=== PATIENT | female | born 1990 | race Caucasian/White ===

== ENCOUNTER 2019-02-15 07:17 | Inpatient (IN) ==
[2019-02-15] MEDS ORDERED: OXYTOCIN 30 UNITS/500 ML BAG IV PRN ×2 (07:36→13:35)
[2019-02-15] MEDS ORDERED: LACTATED RINGER'S 1,000 ML IV PRN ×2 (07:36→09:35)
[2019-02-15] MEDS ORDERED: PENICILLIN G POTASSIUM 3 MU in DEXTROSE 5% 100 ML IV PRN (07:36)
[2019-02-15] MEDS ORDERED: PENICILLIN G POTASSIUM 6 MU in DEXTROSE 5% 250 ML IV STA (07:36)
[2019-02-15 08:16] LABS: Hematocrit (blood only) 36.6 % (37-47); Hemoglobin 12.8 g/dL (12.0-16.0); Mean Corpuscular Volume 93.1 fL (80-100); Mean Platelet Volume 11.9 fL (7.4-10.4); Platelet Count 204 K/uL (130-400); RDW Coefficient of Variation 12.4 % (11.5-14.5); RDW Standard Deviation 42.3 fL (36.4-46.3); Red Blood Count 3.93 M/uL (4.2-5.4); White Blood Count 9.85 K/uL (4.8-10.8)
[2019-02-15] MEDS: LACTATED RINGER'S 1,000 ML IV SCH ×2 (08:25→09:37)
[2019-02-15] MEDS ORDERED: fentaNYL citrate 100 MCG/2 ML VIAL ONE (08:40)
[2019-02-15] MEDS ORDERED: BUPIVACAINE 0.25% 30 ML VIAL ONE (08:40)
[2019-02-15] MEDS ORDERED: ePHEDrine sulfate 50 MG/ML AMP ONE (08:40)
[2019-02-15] MEDS ORDERED: fentaNYL 2MCG/ML ROPIV 1.25MG/ML 100 ML BAG EPI ONE (08:41)
--- NOTE | 2019-02-15 09:13 | Anesthesiology Consultation ---
Date of Service February 15, 2019 Assessment & Plan Chart Review Chart Review: Patient NOT seen in Pre Admission Testing and Acceptable Risk for Labor Epidural Consults Requested none ASA ASA2 Proposed Anesthesia Anesthesia Type: Labor Epidural Risk / Benefits Reviewed With: PT / POA / Parent / Guardian, Accepts Plan and Informed Consent Obtained NPO Date Last Intake of Fluids: 02/15/19 Time Last Intake of Fluids: 05:15 Date Last Intake of Solids: 02/15/19 Time Last Intake of Solids: 05:15 History Height/Weight Height: 5 ft 6 in Weight: 79.832 kg Allergies Allergy/AdvReac Type Severity Reaction Status Date / Time No Known Allergies Allergy Verified 02/15/19 08:59 Medications Home Medications Medication Instructions Recorded Confirmed Last Taken PNV cmb#95-ferrous fumarate-FA 1 tab PO DAILY 02/15/19 02/15/19 02/14/19 08:00 [] lurasidone [Latuda] 20 mg PO DAILY 02/15/19 02/15/19 02/15/19 08:00 Active Medications Generic Name Dose Route Start Last Admin Trade Name Freq PRN Reason Stop Dose Admin Lactated Ringer's 1,000 mls @ 125 mls/hr 02/15/19 07:45 02/15/19 08:28 Lr IV 02/17/19 07:44 999 mls/hr .Q8H SOHAM Infusion Past Medical History Medical History ADHD (attention deficit hyperactivity disorder) Anemia Bipolar 1 disorder GERD (gastroesophageal reflux disease) H/O wisdom tooth extraction HLD (hyperlipidemia) Hypoalbuminemia Hypothyroid Past Surgical History Surgical History H/O arthroscopic knee surgery Past Anesthesia History No Hx of Anesthesia Complications and No Family Hx of Anesthesia Complications History of PONV No Motion Sickness Screening History of Motion Sickness: No Social History Smoking Status: Former smoker Hx Alcohol Use: Yes (few days ago; patient states only 1 class ever in ) Alcohol type: wine Alcohol Intake Frequency Comment: per patient has only ever consumed one glass of wine while being Hx Substance Use: No substance use type: does not use Exercise / Class Metabolic Activity II 4-5 Yardwork/Stairs/Walk up hill Physical Exam Vital Signs Last Vital Signs Temp 37.1 C 02/15/19 09:03 Pulse 79 02/15/19 09:05 Resp 16 02/15/19 07:26 BP 133/86 02/15/19 07:27 Pulse Ox 100 02/15/19 09:05 ENMT Mouth: no dentition abnormality Thyromental Distance: > or= 3.5 Finger Breadths Mallampati Class: II Neck normal visual inspection and trachea midline; neck extension not limited Respiratory normal respiratory effort Auscultation: lungs clear to auscultation bilaterally Cardiovascular Rate/Rhythm: regular rate and regular rhythm Heart Sounds: no murmur Musculoskeletal Spine: lumbar spine normal to inspection; normal cervical ROM Neurologic moves all extremities Motor/Sensory: no sensory deficit Psychiatric Orientation: alert and oriented x 3 Testing Laboratory Results 02/15/19 07:43
[2019-02-15] MEDS ORDERED: NALOXONE HCL 1 MG in SODIUM CHLORIDE 0.9% 1000ML 1,000 ML IV PRN (09:35)
[2019-02-15] MEDS ORDERED: ONDANSETRON INJ 2 MG/ML 2 ML VIAL IV PRN (09:35)
[2019-02-15] MEDS ORDERED: DiphenhydrAMINE HCL 50 MG/ML VIAL IV PRN (09:35)
[2019-02-15] MEDS ORDERED: NALOXONE HCL 0.4 MG/1 ML VIAL/CARP IV PRN (09:35)
[2019-02-15] MEDS ORDERED: ePHEDrine sulfate 50 MG/ML AMP IV PRN (09:35)
[2019-02-15] MEDS ORDERED: NALBUPHINE HCL INJ 10 MG/ML AMP IV PRN (09:35)
[2019-02-15] MEDS ORDERED: fentaNYL 2MCG/ML ROPIV 1.25MG/ML 100 ML BAG EPI PRN (09:35)
[2019-02-15] MEDS ORDERED: PROMETHAZINE HCL 25 MG in SODIUM CHLORIDE 0.9% 50 ML IV PRN (09:35)
--- NOTE | 2019-02-15 12:14 | Procedure Note ---
Vaginal Delivery Summary Date of Service February 15, 2019 Vaginal Delivery Summary Predelivery diagnoses: 28yo @ 36 2/7, spontaneous labor, bipolar disorder, hypothyroidism Postdelivery diagnoses: same Surgeon: Dr Rodriguez Procedure: spontaneous vaginal delivery Findings: viable male , Apgars 8/9. Amniotic banding of left 3rd toe. Nuchal x 1 EBL: 300ml Complications: none Description of delivery: Patient presented in spontaneous labor with spontaneous rupture of membranes for clear fluid and regular contractions. She received an epidural, progressed to complete dilation, and began to push. She spontaneously vaginally delivered a viable male in the cephalic presentation. The head delivered in the left occiput anterior position, nuchal cord x1 was noted and easily reduced, the anterior shoulder delivered followed by the posterior shoulder followed by the body. Baby was placed on mother's abdomen, a spontaneous cry was heard. Delayed cord clamping was employed, and after 1 minute the cord was checked for pulsation, and doubly clamped and cut. The placenta was delivered spontaneously intact with a three-vessel cord. Pitocin was given, the uterus became firm. The uterus and vagina were swept of all clots and debris. The cervix, vagina, perineum were inspected and no lacerations were noted. Excellent hemostasis was observed. Mother and baby are recovering in stable and good condition in the room, Dr. Viera, financial solutions advisor, discussed findings with mother of missing toe due to amniotic banding. Sponge, instrument counts were correct at the conclusion of the delivery x2.
--- NOTE | 2019-02-15 12:17 | History & Physical Report ---
Date of Service February 15, 2019 Assessment & Plan (1) 36 weeks gestation of : Spontaneous labor, admit to L&D. History of Present Illness Chief Complaint: SROM Primary Care Provider: Belen Tammisteffi 28yo @ 36 12/19 was admitted this morning with SROM and spontaneous labor. + movement, no vaginal bleeding. complicated by maternal hypothyroidism, bipolar disorder. On echo, there was a mildly dilated right ventricle, otherwise normal requiring no additional followup. Allergies Allergy/AdvReac Type Severity Reaction Status Date / Time nickel AdvReac Redness of Verified 02/15/19 09:56 Skin Home Medications Home Medications Medication Instructions Recorded Confirmed Type PNV cmb#95-ferrous fumarate-FA 1 tab PO DAILY 02/15/19 02/15/19 History [] lurasidone [Latuda] 20 mg PO DAILY 02/15/19 02/15/19 History Patient History Surgical History H/O arthroscopic knee surgery Social History Preferred Language: Luxembourgish Beliefs That Will Affect Care: None marital status: Single Current Living Situation: Parent Other Information That Helps Us Care for You: No Feels Safe at Home: Yes Safety Concerns: Feels Safe At This Time Smoking Status: Former smoker Hx Alcohol Use: Yes (few days ago; patient states only 1 class ever in ) Hx Substance Use: No Physical Exam Vital Signs (Past 24 Hours): Last Vital Signs Temp 36.6 C 02/15/19 10:58 Pulse 108 H 02/15/19 11:57 Resp 18 02/15/19 10:30 BP 149/81 H 02/15/19 11:57 Pulse Ox 99 02/15/19 11:50 Physical Exam: Gen: AAOx3 NAD CV: RRR L: CTAB Abd: Soft, gravid, NTTP Ext: no edema SVE: on presentation, 4/100/-1 FHT Cat 1 [place] Q 2 min
[2019-02-15] MEDS ORDERED: OXYCODONE/ACETAMINOPHEN 5mg/325mg TAB PO PRN (13:35)
[2019-02-15] MEDS ORDERED: BISACODYL 10 MG SUPP PR PRN (13:35)
[2019-02-15] MEDS ORDERED: SUPERCREAM 0.870% 15 GM JAR EXT PRN (13:35)
[2019-02-15] MEDS ORDERED: BENZOCAINE 20% AER SPR 82.5 GM CAN EXT PRN (13:35)
[2019-02-15] MEDS ORDERED: DIPHTHERIA/TETANUS/PERTUSSIS 0.5 ML SYR/VIAL IM ONE (13:35)
[2019-02-15] MEDS ORDERED: HYDROCORTISONE ACETATE 25 MG SUPP PR PRN (13:35)
[2019-02-15] MEDS ORDERED: ACETAMINOPHEN 325 MG TAB PO PRN (13:35)
--- NOTE | 2019-02-15 13:46 | Anesthesia Procedure Note ---
Date of Service February 15, 2019 Anesthesia Post Epidural Note Vital Signs Vital Signs: Temp Pulse Resp BP Pulse Ox 36.6 C 80 18 125/74 99 02/15/19 10:58 02/15/19 13:41 02/15/19 10:30 02/15/19 13:41 02/15/19 11:50 Notes Mental Status: alert / awake / arousable Nausea / Vomiting: adequately controlled Pain: adequately controlled Airway Patency, RR, SpO2: stable & adequate BP & HR: stable & adequate Hydration State: stable & adequate Neuraxial Anesthesia: was administered Anesthetic Complications: no major complications apparent Epidural: Removed without complications and With tip intact
[2019-02-15] MEDS ORDERED: Nursing to Pharmacy Communication ONE (20:37)
[2019-02-15] MEDS: DOCUSATE SODIUM 100 MG CAP PO SCH (21:10)
[2019-02-15] MEDS: LURASIDONE HCL 40 MG TAB PO SCH (21:11)
[2019-02-15] MEDS: IBUPROFEN 600 MG TAB PO PRN (21:16)
[2019-02-16] MEDS: LEVOTHYROXINE SODIUM 112 MCG TABLET PO SCH (06:54)
[2019-02-16 07:01] LABS: Hematocrit (blood only) 36.9 % (37-47); Hemoglobin 12.8 g/dL (12.0-16.0)
[2019-02-16] MEDS: PRENATAL VITAMIN 1 TAB PO SCH (08:00)
[2019-02-16] MEDS: DOCUSATE SODIUM 100 MG CAP PO SCH ×2 (08:00→21:18)
--- NOTE | 2019-02-16 08:02 | Obstetrical Progress Note ---
Date of Service February 16, 2019 Assessment & Plan (1) 36 weeks gestation of : PPD#1 doing well, no concerns. Continue ambulation, PO hydration. Anticipate DC home tomorrow. Day #:: 1 Subjective Ambulation: ambulating normally Voiding: no voiding problems Passing Gas:: Yes Diet Tolerance:: regular diet Lochia:: Moderate Feeding Type:: breast feeding Physical Exam Vital Signs (Past 24 Hours) Last Vital Signs Temp 36.7 C 02/16/19 07:36 Pulse 75 02/16/19 07:36 Resp 18 02/16/19 07:36 BP 131/89 02/16/19 07:36 Pulse Ox 97 02/15/19 19:20 Gen: AAOx3 NAD CV: RRR L: CTAB Abd: soft, NTTP Ext: no edema
[2019-02-16] MEDS: IBUPROFEN 600 MG TAB PO PRN ×2 (08:18→17:40)
[2019-02-16] MEDS ORDERED: NON-FORMULARY MEDICATION (Pnv Cmb#95-Ferrous Fumarate-Fa [Prenatal] 1 TAB) PO SCH (09:00)
[2019-02-16] MEDS ORDERED: LURASIDONE HCL 40 MG TAB PO SCH (09:00)
[2019-02-16] MEDS ORDERED: BISACODYL 5 MG TABEC PO SCH (20:00)
[2019-02-16] MEDS: LURASIDONE HCL 40 MG TAB PO SCH (21:19)
[2019-02-17] MEDS: IBUPROFEN 600 MG TAB PO PRN ×2 (04:36→08:49)
[2019-02-17] MEDS: LEVOTHYROXINE SODIUM 112 MCG TABLET PO SCH (06:48)
--- NOTE | 2019-02-17 06:58 | Obstetrical Progress Note ---
Date of Service <Dio Buchanan DO - Last Filed: 02/17/19 06:58> February 17, 2019 Assessment & Plan <Dio Buchanan DO - Last Filed: 02/17/19 06:58> (1) 36 weeks gestation of : PPD#2 - discharge home today, continue with routine post- care until discharge home - discharge instructions reviewed at bedside Subjective <Dio Buchanan DO - Last Filed: 02/17/19 06:58> Ambulation: ambulating normally Voiding: no voiding problems Passing Gas:: Yes Diet Tolerance:: regular diet Lochia:: Small Feeding Type:: breast feeding Vicky states she is doing well and is ready for discharge home today. She denies fever, chills, chest pain, nausea, vomiting, headache. Physical Exam <Dio Buchanan DO - Last Filed: 02/17/19 06:58> Vital Signs (Past 24 Hours) Last Vital Signs Temp 36.3 C L 02/17/19 00:50 Pulse 65 02/17/19 00:50 Resp 16 02/17/19 00:50 BP 126/80 02/17/19 00:50 Pulse Ox 97 02/16/19 15:35 Constitutional WD/WN, vitals as above cooperative and comfortable Eyes + anicteric sclerae and EOM intact bilaterally Neck normal visual inspection and trachea midline Respiratory normal respiratory effort, lungs clear to auscultation Cardiovascular RRR, no murmur, no edema Gastrointestinal (Abdomen) Percussion/Palpation: abdomen nontender uterine fundus is firm, non-tender, 3cm inferior to umbilicus Musculoskeletal Head/Neck/Chest: normocephalic and head atraumatic Skin no rashes, warm and dry Neurologic moves all extremities and awake Psychiatric A+Ox3, euthymic affect Results & Data <Dio Buchanan DO - Last Filed: 02/17/19 06:58> Laboratory Results Laboratory Results - last 24 hr 02/16/19 06:48 Hgb 12.8 Hct 36.9 L Medications Administered Docusate Sodium (Colace) 100 mg PO BID SOHAM Stop: 03/17/19 20:59 Last Admin: 02/16/19 21:18 Dose: 100 mg Documented by: [id number] Admin: 02/16/19 08:00 Dose: 100 mg Documented by: [id number] Admin: 02/15/19 21:10 Dose: 100 mg Documented by: [id number] Ibuprofen (Motrin) 600 mg PO Q4H PRN PRN Reason: Pain/SOLARES/Cramping/Fever Stop: 03/17/19 13:34 Last Admin: 02/17/19 04:36 Dose: 600 mg Documented by: [id number] Admin: 02/16/19 17:40 Dose: 600 mg Documented by: [id number] Admin: 02/16/19 08:18 Dose: 600 mg Documented by: [id number] Admin: 02/15/19 21:16 Dose: 600 mg Documented by: [id number] Levothyroxine Sodium (Synthroid) 112 mcg PO DAILYBB [facility] Stop: 03/18/19 06:29 Last Admin: 02/17/19 06:48 Dose: 112 mcg Documented by: [id number] Admin: 02/16/19 06:54 Dose: 112 mcg Documented by: [id number] Lurasidone HCl (Latuda) 20 mg PO HS [facility] Stop: 03/17/19 20:59 Last Admin: 02/16/19 21:19 Dose: 20 mg Documented by: [id number] Admin: 02/15/19 21:11 Dose: 20 mg Documented by: [id number] Prenat Multivit/Consignee/Iron/Folic Ac ( Vitamin) 1 tab PO QAM [facility] Stop: 03/18/19 08:59 Last Admin: 02/16/19 08:00 Dose: 1 tab Documented by: [id number] <Celia Rodriguez, DO - Last Filed: 02/17/19 07:32> Co-Signing Physician Notes I have seen/examined patient. I have read above note performed by resident and I agree with above. Any changes/additions are as follows: PPD#2 doing well, DC home today. Celia Rodriguez DO [facility]
[2019-02-17] MEDS: DOCUSATE SODIUM 100 MG CAP PO SCH (08:49)
[2019-02-17] MEDS: PRENATAL VITAMIN 1 TAB PO SCH (08:49)
== END 2019-02-17 18:50 | disposition home or self-care (01) | DRG 807 ==
LOC: OPB 07:17 → 4S1 07:19 → 4S2 16:20

== ENCOUNTER 2020-05-18 18:43 | Inpatient (IN) ==
[~2020-05-18 18:43] MED LIST: MAGNESIUM SULFATE / D5W 1 GM/100 ML BAG IV ONE
[2020-05-18] MEDS ORDERED: LORazepam 1 MG TAB PO STA (19:03)
--- NOTE | 2020-05-18 19:09 | Emergency Department Note ---
Impression & Plan Acute pancreatitis, Alcoholic intoxication, Transaminitis, Alcohol withdrawal ED Provider Note NAME: MICHELLE COTA AGE: 29 SEX: F : 1990 ARRIVES VIA: Walk-In INFORMANT: Patient ED PROVIDER(S): Eladio Phoenix DO CHIEF COMPLAINT: Anxiety depression and shortness of breath HPI: Patient is a 29-year-old female who presents the ER for shortness of breat h, anxiety, nausea, and vomiting. Her symptoms have been going on for the past month. She does have a history of depression, anxiety and bipolar. Her medications were changed around about a month ago. She has been following with [facility] as an outpatient. She has not been able to get to work with the exception of 4 hours throughout this whole month. She constantly feels short of breath with tremors/whole body shaking and intermittent nausea and vomiting. She notes this was when her panic attacks got worse. She has been getting this every day. She is not taking care of herself. She denies any homicidal or suicidal ideations. She has also been having diarrhea daily as well. Patient later admits that she is an alcoholic. She drinks three quarters of a bottle of tequila per day. This is been going on for the past month. She recently has been decreasing amount of tequila that she is taking them. ROS: See above HPI for pertinent positives & negatives. A total of 10 systems reviewed and were otherwise negative. PAST MEDICAL HISTORY:See Below PAST SURGICAL HISTORY:See Below FAMILY HISTORY:Diabetes and cancer SOCIAL HISTORY:See Below HOME MEDICATIONS:See Below ALLERGIES:See Below VITALS:See Below PHYSICAL EXAMINATION: GENERAL: Sitting up in bed, disheveled, intermittently vomiting, tachypneic and anxious EYE EXAM: normal conjunctiva. OROPHARYNX: no exudate, no erythema, lips, buccal mucosa, and tongue normal and mucous membranes are moist NECK: supple, no nuchal rigidity, no adenopathy, non-tender LUNGS: Clear to auscultation. Normal chest wall mechanics HEART: no murmurs, S1 normal and S2 normal ABDOMEN: abdomen soft, non-tender, normo-active bowel sounds, no masses, no rebound or guarding. BACK: Back is symmetrical on inspection and there is no deformity, no midline tenderness, no CVA tenderness. SKIN: no rashes and no bruising UPPER EXTREMITIES: upper extremities are grossly normal. LOWER EXTREMITIES: No pitting edema. NEURO EXAM: Normal sensorium, cranial nerves II-XII grossly intact, normal speech, no gross weakness of arms, no gross weakness of legs. No drift. PSYCH: Denies and SI or HI unable to eat or drink. MEDICAL DECISION MAKING: Patient is a 29-year-old female who presents the ER for shortness of breath nausea vomiting and a panic attack all of which has been going on for the past month but recently getting worse. She has had a significant change in her medications. IV was status post orders obtained. Labs show no significant leukocytosis or anemia. BMP was unremarkable. D-dimer was slightly elevated at 1900. Magnesium was low at 1.5. AST was elevated at 375 and ALT is elevated at 127. Early Manny was not elevated. Baseline ALT is 88. Lipase was elevated at 800. TSH was elevated. Alcohol was significantly elevated at 170. With positive d-dimer CT of the chest was performed and was negative. Patient was given IV fluids IV Zofran and IV Ativan. Heart rate was up in the 130s. US gallbladder was unremarkable. She was updated at bedside and discussed with the hospitalist for admission for further workup. Patient was given IV thiamine folate and 2 L IV fluids. She will need to be evaluated by psychiatry as well from an inpatient standpoint. Do favor that this is likely with a combination alcohol pancreatitis with a transaminitis. Triage Nursing notes reviewed. Prior medical records reviewed Vital Signs: reviewed and remarkable for tachycardia Differential diagnosis: Mood disorder, infection, hypoglycemia, electrolyte abnormalities, cardiac sources, intracerebral event, toxicologic, trauma, neurologic, as well as other pathologies. ER treatment provided: See below Diagnostics interpreted by me: ECG: Sinus tachycardia rate of 116 Normal axis No PVCs Normal QTC Nonspecific T wave changes in the inferior leads Cardiac Monitoring: An order was placed for continuous cardiac monitoring. The monitor shows a rate of 112 with sinus rhythm. Laboratory studies: As stated above and show below. Imaging studies: Chest x-ray was unremarkable. CT of the chest shows no acute pathology. Ultrasound gallbladder was normal. Consultation(s): Discussed with Dr. Ramirez for admission. ED COURSE: Procedures: none Past Med/Surg History Social History Preferred Language: Spanish Communication Ability: Effective Beliefs That Will Affect Care: None marital status: Single Current Living Situation: Parent Feels Safe at Home: Yes Smoking Status: Never smoker Hx Alcohol Use: Yes (few days ago; patient states only 1 class ever in ) Alcohol type: wine Hx Substance Use: No Allergies Allergies Allergy/AdvReac Type Severity Reaction Status Date / Time nickel AdvReac Redness of Verified 05/18/20 19:24 Skin Home Meds Home Medications Medication Instructions Recorded Confirmed levothyroxine 100 mcg PO QAM 08/12/19 05/18/20 buspirone 7.5 mg PO BID 05/18/20 05/18/20 lisdexamfetamine [Vyvanse] 40 mg PO QAM 05/18/20 05/18/20 norethindrone-ethin estradiol 1 tab PO DAILY 05/18/20 05/18/20 [Alyacen (28)] omeprazole 20 mg PO QAM 05/18/20 05/18/20 quetiapine 25 mg PO HS 05/18/20 05/18/20 Results & Data (ED) Vital Signs Vital Signs - 24 hr 05/18/20 18:46 05/18/20 19:26 05/18/20 20:25 Temperature 36.6 C Temperature Source Oral Pulse Rate 138 H Pulse Rate [Right Finger] 128 H Pulse Rhythm Regular Pulse Strength Normal Respiratory Rate 20 20 Respiratory Effort / Characteristics Non-Labored Respiratory Depth Normal Respiratory Pattern Regular Blood Pressure [Right Arm] 157/113 H Blood Pressure Mean [Right Arm] 127 Blood Pressure Position Sitting Pulse Oximetry 96 97 100 Oxygen Delivery Method Room Air Room Air Sepsis Recent Fever Within 48 Hours No Sepsis Action Taken by Nursing No Action Required 05/18/20 20:43 Temperature Temperature Source Pulse Rate Pulse Rate [Right Finger] 122 H Pulse Rhythm Pulse Strength Respiratory Rate 15 Respiratory Effort / Characteristics Respiratory Depth Respiratory Pattern Blood Pressure [Right Arm] 159/116 H Blood Pressure Mean [Right Arm] 130 Blood Pressure Position Pulse Oximetry 97 Oxygen Delivery Method Sepsis Recent Fever Within 48 Hours Sepsis Action Taken by Nursing Laboratory Data Result diagrams: 05/18/20 19:22 05/18/20 19:22 Lab Results 05/18/20 05/18/20 05/18/20 Range/Units 19:22 19:22 19:22 WBC 6.07 (4.8-10.8) K/uL RBC 4.00 L (4.2-5.4) M/uL Hgb 13.7 (12.0-16.0) g/dL Hct 39.7 (37-47) % MCV 99.3 (80-100) fL MCH 34.3 H (25-34) pg MCHC 34.5 (32-36) g/dL RDW Std Deviation 51.4 H (36.4-46.3) fL RDW Coeff of Aiden 14.3 (11.5-14.5) % Plt Count 313 (130-400) K/uL MPV 9.8 (7.4-10.4) fL Immature Gran % (Auto) 0.2 % Neut % (Auto) 50.6 % Lymph % (Auto) 36.7 % [place] % (Auto) 9.4 % Eos % (Auto) 1.8 % Baso % (Auto) 1.3 % Neut # (Auto) 3.07 (1.4-6.5) K/uL Lymph # (Auto) 2.23 (1.2-3.4) K/uL [place] # (Auto) 0.57 (0.11-0.59) K/uL Eos # (Auto) 0.11 (0-0.5) K/uL Baso # (Auto) 0.08 (0-0.2) K/uL Immature Gran # (Auto) 0.01 (0.00-0.02) K/uL PT (9.0-12.0) Seconds INR (0.9-1.1) D-Dimer 1910 H* (0-500) ug/L FEU Sodium 139 (136-145) mmol/L Potassium 3.5 (3.5-5.1) mmol/L Chloride 103 (98-107) mmol/L Carbon Dioxide 22 (21-32) mmol/L Anion Gap 14.0 H (3-11) BUN 8 (7-18) mg/dl Creatinine 0.86 (0.6-1.2) mg/dl Est Cr Clr Drug Dosing 98.0 ml/min Est GFR ( Amer) 105.1 Est GFR (Non-Af Amer) 90.7 BUN/Creatinine Ratio 9.6 L (10-20) Glucose 104 H (70-99) mg/dl Calcium 8.3 L (8.5-10.1) mg/dl Magnesium (1.8-2.4) mg/dl Total Bilirubin 0.4 (0.2-1) mg/dl AST 375 H (15-37) U/L ALT 127 H (12-78) U/L Alkaline Phosphatase 57 (45-117) U/L Total Protein 7.4 (6.4-8.2) gm/dl Albumin 3.4 (3.4-5.0) gm/dl Globulin 4.0 (2.5-4.0) gm/dl Albumin/Globulin Ratio 0.9 (0.9-2) Lipase (73-393) U/L TSH 14.500 H (0.300-4.500) uIu/ml Free T4 1.08 (0.8-1.6) ng/dl Salicylates (2.8-20) mg/dl Acetaminophen (10-30) ug/ml Ethyl Alcohol mg/dL (0-3) mg/dl 05/18/20 05/18/20 05/18/20 Range/Units 19:22 19:22 19:22 WBC (4.8-10.8) K/uL RBC (4.2-5.4) M/uL Hgb (12.0-16.0) g/dL Hct (37-47) % MCV (80-100) fL MCH (25-34) pg MCHC (32-36) g/dL RDW Std Deviation (36.4-46.3) fL RDW Coeff of Aiden (11.5-14.5) % Plt Count (130-400) K/uL MPV (7.4-10.4) fL Immature Gran % (Auto) % Neut % (Auto) % Lymph % (Auto) % [place] % (Auto) % Eos % (Auto) % Baso % (Auto) % Neut # (Auto) (1.4-6.5) K/uL Lymph # (Auto) (1.2-3.4) K/uL [place] # (Auto) (0.11-0.59) K/uL Eos # (Auto) (0-0.5) K/uL Baso # (Auto) (0-0.2) K/uL Immature Gran # (Auto) (0.00-0.02) K/uL PT (9.0-12.0) Seconds INR (0.9-1.1) D-Dimer (0-500) ug/L FEU Sodium (136-145) mmol/L Potassium (3.5-5.1) mmol/L Chloride (98-107) mmol/L Carbon Dioxide (21-32) mmol/L Anion Gap (3-11) BUN (7-18) mg/dl Creatinine (0.6-1.2) mg/dl Est Cr Clr Drug Dosing ml/min Est GFR ( Amer) Est GFR (Non-Af Amer) BUN/Creatinine Ratio (10-20) Glucose (70-99) mg/dl Calcium (8.5-10.1) mg/dl Magnesium (1.8-2.4) mg/dl Total Bilirubin (0.2-1) mg/dl AST (15-37) U/L ALT (12-78) U/L Alkaline Phosphatase (45-117) U/L Total Protein (6.4-8.2) gm/dl Albumin (3.4-5.0) gm/dl Globulin (2.5-4.0) gm/dl Albumin/Globulin Ratio (0.9-2) Lipase 816 H (73-393) U/L TSH (0.300-4.500) uIu/ml Free T4 (0.8-1.6) ng/dl Salicylates 1.9 L (2.8-20) mg/dl Acetaminophen < 2 L (10-30) ug/ml Ethyl Alcohol mg/dL 169.8 H (0-3) mg/dl 05/18/20 05/18/20 Range/Units 19:22 19:22 WBC (4.8-10.8) K/uL RBC (4.2-5.4) M/uL Hgb (12.0-16.0) g/dL Hct (37-47) % MCV (80-100) fL MCH (25-34) pg MCHC (32-36) g/dL RDW Std Deviation (36.4-46.3) fL RDW Coeff of Aiden (11.5-14.5) % Plt Count (130-400) K/uL MPV (7.4-10.4) fL Immature Gran % (Auto) % Neut % (Auto) % Lymph % (Auto) % [place] % (Auto) % Eos % (Auto) % Baso % (Auto) % Neut # (Auto) (1.4-6.5) K/uL Lymph # (Auto) (1.2-3.4) K/uL [place] # (Auto) (0.11-0.59) K/uL Eos # (Auto) (0-0.5) K/uL Baso # (Auto) (0-0.2) K/uL Immature Gran # (Auto) (0.00-0.02) K/uL PT 10.3 (9.0-12.0) Seconds INR 1.0 (0.9-1.1) D-Dimer (0-500) ug/L FEU Sodium (136-145) mmol/L Potassium (3.5-5.1) mmol/L Chloride (98-107) mmol/L Carbon Dioxide (21-32) mmol/L Anion Gap (3-11) BUN (7-18) mg/dl Creatinine (0.6-1.2) mg/dl Est Cr Clr Drug Dosing ml/min Est GFR ( Amer) Est GFR (Non-Af Amer) BUN/Creatinine Ratio (10-20) Glucose (70-99) mg/dl Calcium (8.5-10.1) mg/dl Magnesium 1.5 L (1.8-2.4) mg/dl Total Bilirubin (0.2-1) mg/dl AST (15-37) U/L ALT (12-78) U/L Alkaline Phosphatase (45-117) U/L Total Protein (6.4-8.2) gm/dl Albumin (3.4-5.0) gm/dl Globulin (2.5-4.0) gm/dl Albumin/Globulin Ratio (0.9-2) Lipase (73-393) U/L TSH (0.300-4.500) uIu/ml Free T4 (0.8-1.6) ng/dl Salicylates (2.8-20) mg/dl Acetaminophen (10-30) ug/ml Ethyl Alcohol mg/dL (0-3) mg/dl Administered Medications Magnesium Sulfate/Dextrose (Magnesium Sulfate / D5w) 1 gm in 100 mls @ 50 mls/hr IV ONE ONE Stop: 05/18/20 23:12 Last Admin: 05/18/20 21:39 Dose: 50 mls/hr Documented by: [id number] Ioversol (Optiray 320 125ml) 115 ml IV ONCE PRN PRN Reason: Interaction Checking Stop: 05/22/20 20:17 Last Admin: 05/18/20 20:18 Dose: 115 ml Documented by: [id number] Discontinued Medications Clonidine HCl (Catapres) 0.1 mg PO NOW STA Stop: 05/18/20 21:17 Last Admin: 05/18/20 21:39 Dose: 0.1 mg Documented by: [id number] Gabapentin (Neurontin) 1,200 mg PO NOW STA Stop: 05/18/20 21:09 Last Admin: 05/18/20 21:40 Dose: 1,200 mg Documented by: [id number] Sodium Chloride (Nss 1000ml) 2,000 mls @ 999 mls/hr IV .Q2H1M SOHAM Stop: 05/18/20 21:15 Last Infusion: 05/18/20 21:43 Dose: 0 mls/hr Documented by: [id number] Admin: 05/18/20 19:27 Dose: 999 mls/hr Documented by: [id number] Thiamine HCl 100 mg/ Syringe 10 mls @ 2 mls/min IV NOW STA Stop: 05/18/20 20:08 Last Admin: 05/18/20 20:42 Dose: 2 mls/min Documented by: [id number] Folic Acid 1 mg/ Syringe 10 mls @ 5 mls/min IV NOW STA Stop: 05/18/20 20:05 Last Admin: 05/18/20 20:42 Dose: 5 mls/min Documented by: [id number] Lorazepam (Ativan) 1 mg in 2 mls @ 2 mls/min IV NOW STA Stop: 05/18/20 21:07 Last Admin: 05/18/20 21:14 Dose: 2 mls/min Documented by: [id number] Calcium Gluconate 1,000 mg/ (Sodium Chloride) 60 mls @ 240 mls/hr IV NOW ONE Stop: 05/18/20 21:44 Last Infusion: 05/18/20 21:55 Dose: 0 mls/hr Documented by: [id number] Admin: 05/18/20 21:39 Dose: 240 mls/hr Documented by: [id number] Lorazepam (Ativan) 1 mg PO NOW STA Stop: 05/18/20 19:04 Last Admin: 05/18/20 19:17 Dose: 1 mg Documented by: [id number] Multivitamins (Multivitamin Tab) 1 tab PO NOW STA Stop: 05/18/20 20:05 Last Admin: 05/18/20 20:42 Dose: 1 tab Documented by: [id number] Ondansetron HCl (Zofran) 4 mg IV NOW STA Stop: 05/18/20 21:08 Last Admin: 05/18/20 21:14 Dose: 4 mg Documented by: [id number] Discharge Plan Visit Data Chief Complaint: Anxiety Stated Complaint: [facility] REFERRED Other Complaint: Mental Health Evaluation ED Provider: Eladio Phoenix Discharge Problem: Acute pancreatitis, Alcoholic intoxication, Transaminitis, Alcohol withdrawal Discharge Instructions Interventions: ED Discharge Assessment Last Done: 05/18/20 22:04 Forms Stand Alone Forms: [facility] StatusPage, Suicide Prevention Resources Prescriptions Prescriptions: No Action levothyroxine 100 mcg tablet 100 mcg PO QAM RF: 0 quetiapine 25 mg tablet 25 mg PO HS RF: 0 buspirone 7.5 mg tablet 7.5 mg PO BID RF: 0 omeprazole 20 mg capsule,delayed release(DR/EC) 20 mg PO QAM RF: 0 Alyacen 1/35 (28) 1-35 mg-mcg tablet 1 tab PO DAILY RF: 0 Vyvanse 40 mg capsule 40 mg PO QAM RF: 0 Referrals Referrals: Belen Tran DO [Primary Care Provider] - Discharge Problem: Acute pancreatitis Qualifiers: Pancreatitis type: unspecified pancreatitis type Acute pancreatitis complication: unspecified Qualified Code(s): K85.90 - Acute pancreatitis without necrosis or infection, unspecified Alcoholic intoxication Qualifiers: Complication of substance-induced condition: with unspecified complication Qualified Code(s): F10.929 - Alcohol use, unspecified with intoxication, unspecified Alcohol withdrawal Qualifiers: Complication of substance-induced condition: with unspecified complication Pk lified Code(s): F10.239 - Alcohol dependence with withdrawal, unspecified
[2020-05-18] MEDS ORDERED: SODIUM CHLORIDE 0.9% 1000ML 2,000 ML IV SCH (19:15)
--- NOTE | 2020-05-18 19:17 | XRay Report ---
XR chest 1V portable CLINICAL HISTORY: sob dyspnea COMPARISON STUDY: 08/12/2019 FINDINGS: The bones soft tissues and hemidiaphragms are normal. The cardiomediastinal silhouette is n ormal. The lungs are clear. The pulmonary vasculature is normal. IMPRESSION: Negative chest. ACT 112: Negative or not required by law. The above report was generated using voice recognition software. It may contain grammatical, syntax or spelling errors. Electronically signed by: Oscar Wyatt M.D. 05/18/2020 7:16 PM
[2020-05-18 19:33] LABS: Basophils # (auto) 0.08 K/uL (0-0.2); Basophils % (auto) 1.3 %; Eosinophils # (auto) 0.11 K/uL (0-0.5); Eosinophils % (auto) 1.8 %; Hematocrit (blood only) 39.7 % (37-47); Hemoglobin 13.7 g/dL (12.0-16.0); Immature Granulocytes # (auto) 0.01 K/uL (0.00-0.02); Immature Granulocytes % (auto) 0.2 %; Lymphocytes # (auto) 2.23 K/uL (1.2-3.4); Lymphocytes % (auto) 36.7 %; Mean Corpuscular Hemoglobin 34.3 pg (25-34); Mean Corpuscular Hgb Conc 34.5 g/dL (32-36); Mean Corpuscular Volume 99.3 fL (80-100); Mean Platelet Volume 9.8 fL (7.4-10.4); Monocytes # (auto) 0.57 K/uL (0.11-0.59); Monocytes % (auto) 9.4 %; Neutrophils # (auto) 3.07 K/uL (1.4-6.5); Neutrophils % (auto) 50.6 %; Platelet Count 313 K/uL (130-400); RDW Coefficient of Variation 14.3 % (11.5-14.5); RDW Standard Deviation 51.4 fL (36.4-46.3); White Blood Count 6.07 K/uL (4.8-10.8)
[2020-05-18 19:51] LABS: D Dimer 1910 ug/L FEU (0-500)
[2020-05-18 19:55] LABS: Albumin Level 3.4 gm/dl (3.4-5.0); BUN Creatinine Ratio 9.6 (10-20); Calcium 8.3 mg/dl (8.5-10.1); Est GFR (African American) 105.1; Est GFR (Non-African American) 90.7
[2020-05-18 20:02] LABS: Acetaminophen < 2 ug/ml (10-30)
[2020-05-18 20:03] LABS: Potassium 3.5 mmol/L (3.5-5.1); Salicylate 1.9 mg/dl (2.8-20)
[2020-05-18] MEDS ORDERED: THIAMINE HCL 100 MG in SYRINGE 9 ML IV STA (20:04)
[2020-05-18] MEDS ORDERED: MULTIVITAMIN TAB PO STA (20:04)
[2020-05-18] MEDS ORDERED: FOLIC ACID 1 MG in SYRINGE 9.8 ML IV STA (20:04)
[2020-05-18 20:06] LABS: Albumin Globulin Ratio 0.9 (0.9-2); Bilirubin,Total 0.4 mg/dl (0.2-1); Thyroid Stimulating Hormone 14.5 uIu/ml (0.300-4.500); Total Protein 7.4 gm/dl (6.4-8.2)
[2020-05-18] MEDS ORDERED: OPTIRAY 320 125ml IV PRN (20:18)
[2020-05-18 20:19] LABS: T4 Free Thyroxine 1.08 ng/dl (0.8-1.6)
--- NOTE | 2020-05-18 20:38 | CT Scan Report ---
CT angio chest PE protocol CT DOSE: 258.02 mGy.cm HISTORY: Pain. Dyspnea. +dd sob TECHNIQUE: Multiaxial CT images of the chest were performed following the intravenous administration of contrast to evaluate the pulmonary arteries. Maximal intensity projection images were also obtaine d. A dose lowering technique was utilized adhering to the principles of ALARA. COMPARISON STUDY: None. FINDINGS: There is a normal caliber thoracic aorta with no evidence for dissection. There is no evide nce for pulmonary embolus. No pleural effusions. No pneumothorax. The liver and spleen are unremarkab le. No mediastinal or hilar lymphadenopathy. The central airways are patent. The lungs are clear. Hep atomegaly with diffuse fatty infiltration IMPRESSION: No evidence for pulmonary embolus. The lungs are clear. Hepatomegaly with diffuse fatty infiltration ACT 112: Negative or not required by law. The above report was generated using voice recognition software. It may contain grammatical, syntax or spelling errors. Electronically signed by: Oscar Wyatt M.D. 05/18/2020 8:37 PM
[2020-05-18] MEDS ORDERED: LORazepam 1 MG/2 ML VIAL IV STA (21:06)
[2020-05-18] MEDS ORDERED: ONDANSETRON INJ 2 MG/ML 2 ML VIAL IV STA (21:07)
[2020-05-18] MEDS ORDERED: GABAPENTIN 600 MG TAB PO STA (21:08)
[2020-05-18] MEDS ORDERED: LORazepam 3 MG/6 ML VIAL IV PRN (21:09)
[2020-05-18] MEDS ORDERED: ATIVAN IV ALCOHOL WITHDRAWL IV PRN (21:09)
[2020-05-18] MEDS ORDERED: GABAPENTIN 1200MG ALCOHOL WITHDRAWAL LOAD PO STA (21:09)
[2020-05-18] MEDS ORDERED: MAGNESIUM SULFATE / D5W 1 GM/100 ML BAG IV ONE (21:13)
[2020-05-18] MEDS ORDERED: cloNIDine HCL 0.1 MG TAB PO STA (21:16)
[2020-05-18 21:24] LABS: Prothrombin Time 10.3 Seconds (9.0-12.0)
[2020-05-18] MEDS ORDERED: CALCIUM GLUCONATE 10% 1,000 MG in SODIUM CHLORIDE 0.9% 50 ML IV ONE (21:30)
--- NOTE | 2020-05-18 21:36 | History & Physical Report ---
Date of Service May 18, 2020 Assessment & Plan (1) Alcohol withdrawal: Alcoholic pancreatitis, transaminitis Hypertensive urgency secondary to illness mood disorder, ADD as per records Suboptimal mood congenital hypothyroidism, TSH elevated Medical telemetry AWSS DT precautions Clonidine as needed for SBP > 140 Inpatient Psych consult as per patient request RE suboptimal mood Increase home levothyroxine dose from 100 to 112 mcg daily and recheck TSH next month. Social service RE discharge planning DVT prophylaxis. Lovenox subcu Full code Text document was generated using [employer] voice recognition software. It may contain grammatical or spelling errors. Kindly contact undersigned for clarification of any documentation item in question. History of Present Illness Chief Complaint: Shortness of breath, anxiety depression, nausea vomiting Primary Care Provider: Belen Tran DO History obtained from patient, family, and records. Medical history significant for mood disorder, ADD as per records, congenital hypothyroidism, alcohol abuse. Last 2018 for childbirth/vaginal delivery under OB service. Patient stressed out the last month with work at home. More anxious than usual. Mood not the best denies suicidality. Admits to alcohol abuse. This morning, patient consume less alcohol than usual due to desire to quit. Subsequently had nausea, emesis symptoms, shortness of breath. Body shaking all over. Patient denies chest pain, cough, recent COVID-19 contacts. No actual abdominal pain. Usual watery diarrhea symptoms. No prior history of alcohol withdrawal seizures/intubation for alcohol withdrawal. Patient brought to the ER for evaluation by mother. Medical History as above Recent outpatient GI work-up last March 2020 for diarrhea symptoms. Stool C. difficile negative. EGD reflux esophagitis, gastritis. Colonoscopy showed diverticulosis, internal hemorrhoids. Surgical History : Dental surgery Family History : Depression, alcoholism Personal/Social history : Non-smoker, alcohol abuse, computer coding work Allergies Allergy/AdvReac Type Severity Reaction Status Date / Time nickel AdvReac Redness of Verified 05/18/20 19:24 Skin Home Medications Home Medications Medication Instructions Recorded Confirmed Type levothyroxine 100 mcg PO QAM 08/12/19 05/18/20 History buspirone 7.5 mg PO BID 05/18/20 05/18/20 History lisdexamfetamine [Vyvanse] 40 mg PO QAM 05/18/20 05/18/20 History norethindrone-ethin estradiol 1 tab PO DAILY 05/18/20 05/18/20 History [Hilda (28)] omeprazole 20 mg PO QAM 05/18/20 05/18/20 History quetiapine 25 mg PO HS 05/18/20 05/18/20 History Past Med/Surg History Social History Preferred Language: Belarusian Communication Ability: Effective Beliefs That Will Affect Care: None marital status: Single Current Living Situation: Parent Feels Safe at Home: Yes Smoking Status: Never smoker Hx Alcohol Use: Yes (few days ago; patient states only 1 class ever in ) Alcohol type: wine Hx Substance Use: No Review of Systems Review of Systems: As per HPI, all 10 systems reviewed, all other ROS negative Physical Exam Physical Exam: GENERAL: Comfortable, slightly anxious, tremulous, no respiratory distress SKIN: Normal color, warm HEENT: bespectacled, pink palpebral conjunctivae, no ptosis, dry buccal mucosa NECK : Supple, no tenderness CHEST : CTA, no tenderness HEART : Tachycardic , no obvious murmurs ABDOMEN: Some distention, minimal epigastric tenderness EXTREMITIES : No LE swelling/tenderness, no other conspicuous deformities noted NEUROLOGIC : Coherent, no facial asymmetry, tremulous, no other gross focality Results & Data Results & Data ([facility]) Vital Signs (Past 12 Hours) Vital Signs Temp Pulse Pulse Resp BP Pulse Ox 05/18/20 20:43 122 H 15 159/116 H 97 05/18/20 20:25 100 05/18/20 19:26 128 H 20 157/113 H 97 05/18/20 18:46 36.6 C 138 H 20 96 Laboratory Results Laboratory Results WBC 6.07 K/uL (4.8-10.8) 05/18/20 19:22 RBC 4.00 M/uL (4.2-5.4) L 05/18/20 19:22 Hgb 13.7 g/dL (12.0-16.0) 05/18/20 19:22 Hct 39.7 % (37-47) 05/18/20 19:22 MCV 99.3 fL (80-100) 05/18/20 19:22 MCH 34.3 pg (25-34) H 05/18/20 19:22 MCHC 34.5 g/dL (32-36) 05/18/20 19:22 RDW Std Deviation 51.4 fL (36.4-46.3) H 05/18/20 19: RDW Coeff of Aiden 14.3 % (11.5-14.5) 05/18/20 19:22 Plt Count 313 K/uL (130-400) 05/18/20 19:22 MPV 9.8 fL (7.4-10.4) 05/18/20 19:22 Immature Gran % (Auto) 0.2 % 05/18/20 19:22 Neut % (Auto) 50.6 % 05/18/20 19:22 Lymph % (Auto) 36.7 % 05/18/20 19:22 Long % (Auto) 9.4 % 05/18/20 19:22 Eos % (Auto) 1.8 % 05/18/20 19:22 Baso % (Auto) 1.3 % 05/18/20 19:22 Neut # (Auto) 3.07 K/uL (1.4-6.5) 05/18/20 19:22 Lymph # (Auto) 2.23 K/uL (1.2-3.4) 05/18/20 19:22 Long # (Auto) 0.57 K/uL (0.11-0.59) 05/18/20 19:22 Eos # (Auto) 0.11 K/uL (0-0.5) 05/18/20 19:22 Baso # (Auto) 0.08 K/uL (0-0.2) 05/18/20 19:22 Immature Gran # (Auto) 0.01 K/uL (0.00-0.02) 05/18/20 19:22 PT 10.3 Seconds (9.0-12.0) 05/18/20 19: INR 1.0 (0.9-1.1) 05/18/20 19:22 D-Dimer 1910 ug/L FEU (0-500) H* 05/18/20 19:22 Sodium 139 mmol/L (136-145) 05/18/20 19:22 Potassium 3.5 mmol/L (3.5-5.1) 05/18/20 19: Chloride 103 mmol/L (98-107) 05/18/20 19:22 Carbon Dioxide 22 mmol/L (21-32) 05/18/20 19:22 Anion Gap 14.0 (3-11) H 05/18/20 19:22 BUN 8 mg/dl (7-18) 05/18/20 19:22 Creatinine 0.86 mg/dl (0.6-1.2) 05/18/20 19:22 Est Cr Clr Drug Dosing 98.0 ml/min 05/18/20 19:22 Est GFR ( Amer) 105.1 05/18/20 19:22 Est GFR (Non-Af Amer) 90.7 05/18/20 19:22 BUN/Creatinine Ratio 9.6 (10-20) L 05/18/20 19:22 Glucose 104 mg/dl (70-99) H 05/18/20 19:22 Calcium 8.3 mg/dl (8.5-10.1) L 05/18/20 19:22 Magnesium 1.5 mg/dl (1.8-2.4) L 05/18/20 19:22 Total Bilirubin 0.4 mg/dl (0.2-1) 05/18/20 19:22 AST 375 U/L (15-37) H 05/18/20 19:22 ALT 127 U/L (12-78) H 05/18/20 19:22 Alkaline Phosphatase 57 U/L (45-117) 05/18/20 19:22 Total Protein 7.4 gm/dl (6.4-8.2) 05/18/20 19:22 Albumin 3.4 gm/dl (3.4-5.0) 05/18/20 19:22 Globulin 4.0 gm/dl (2.5-4.0) 05/18/20 19:22 Albumin/Globulin Ratio 0.9 (0.9-2) 05/18/20 19:22 Lipase 816 U/L (73-393) H 05/18/20 19:22 TSH 14.500 uIu/ml (0.300-4.500) H 05/18/20 19:22 Free T4 1.08 ng/dl (0.8-1.6) 05/18/20 19:22 Salicylates 1.9 mg/dl (2.8-20) L 05/18/20 19:22 Acetaminophen < 2 ug/ml (10-30) L 05/18/20 19:22 Ethyl Alcohol mg/dL 169.8 mg/dl (0-3) H 05/18/20 19:[address] chest: No evidence for pulmonary embolus. The lungs are clear. Hepatomegaly with diffuse fatty infiltration Gallbladder ultrasound initial read:Enlarged liver. Hepatic steatosis. No gallstones. CBD 3 mm. EKG per my interpretation: Rate 115, sinus tachycardia, normal axis, LAE, T wave abnormalities anterolateral leads
[2020-05-18] MEDS ORDERED: PROMETHAZINE HCL 12.5 MG in SODIUM CHLORIDE 0.9% 50 ML IV PRN (22:55)
[2020-05-18] MEDS: LACTATED RINGER'S 1,000 ML IV SCH (23:15)
[2020-05-18] MEDS: BUSPIRONE HCL 7.5 MG TAB PO SCH ×2 (23:21→23:29)
[2020-05-18] MEDS: QUETIAPINE FUMARATE 25 MG TABLET PO SCH ×2 (23:21→23:30)
[2020-05-18] MEDS ORDERED: POTASSIUM CHLORIDE PWD 20 MEQ PACK PO ONE (23:30)
[2020-05-19] MEDS: PROMETHAZINE HCL 12.5 MG in SODIUM CHLORIDE 0.9% 50 ML IV PRN ×3 (00:12→16:34)
[2020-05-19] MEDS ORDERED: cloNIDine HCL 0.1 MG TAB PO ONE (00:30)
[2020-05-19] MEDS: LORazepam 2 MG/4 ML VIAL IV PRN ×3 (00:31→22:08)
[2020-05-19] MEDS: GABAPENTIN 600 MG TAB PO SCH ×3 (03:59→17:22)
[2020-05-19] MEDS: LACTATED RINGER'S 1,000 ML IV SCH (04:27)
[2020-05-19] MEDS: LEVOTHYROXINE SODIUM 112 MCG TABLET PO SCH (05:49)
[2020-05-19 06:40] LABS: Appearance Urine Clear (Clear); Bacteria Urine Automated 3+ (Negative); Bilirubin Urine Negative (Negative); Blood Urine Trace (Negative); Color Urine Yellow; Epithelial Cell Urine Auto >30 /lpf (0-5); Glucose Urine UA Negative (Negative); Ketones Urine 1+ (Negative); Leukocyte Esterase Urine Negative (Negative); Nitrite Urine Negative (Negative); Protein Urine Negative (Negative); RBC Urine Automated 0-4 /hpf (0-4); Specific Gravity Urine > 1.045 (1.000-1.030); Urobilinogen Urine Negative (Negative); pH Urine 5.5 (4.5-7.5)
[2020-05-19 06:50] LABS: Basophils # (auto) 0.03 K/uL (0-0.2); Basophils % (auto) 0.5 %; Eosinophils % (auto) 1.7 %; Hematocrit (blood only) 36.9 % (37-47); Hemoglobin 12.5 g/dL (12.0-16.0); Immature Granulocytes # (auto) 0.01 K/uL (0.00-0.02); Immature Granulocytes % (auto) 0.2 %; Lymphocytes # (auto) 2.77 K/uL (1.2-3.4); Lymphocytes % (auto) 47.1 %; Mean Corpuscular Hemoglobin 34.3 pg (25-34); Mean Corpuscular Hgb Conc 33.9 g/dL (32-36); Mean Corpuscular Volume 101.4 fL (80-100); Monocytes # (auto) 0.47 K/uL (0.11-0.59); Neutrophils % (auto) 42.5 %; Platelet Count 265 K/uL (130-400); RDW Coefficient of Variation 14.5 % (11.5-14.5); RDW Standard Deviation 52.8 fL (36.4-46.3); Red Blood Count 3.64 M/uL (4.2-5.4); White Blood Count 5.88 K/uL (4.8-10.8)
[2020-05-19 06:56] LABS: Amphetamines+Metham, Urine Neg (Neg); Barbiturates, Urine Neg (Neg); Benzodiazepine, Urine Neg (Neg); Cocaine, Urine Neg (Neg); MDMA (Ecstacy), Urine Neg (Neg); Methadone, Urine Neg (Neg); Opiate, Urine Neg (Neg); Phencyclidine, Urine Neg (Neg)
--- NOTE | 2020-05-19 07:11 | Ultrasound Report ---
US gallbladder CLINICAL HISTORY: Abdominal pain COMPARISON STUDY: Right upper quadrant ultrasound August 12, 2019. FINDINGS: Hepatic echogenicity is increased. No hepatic lesions are identified. There is no biliary d uctal dilatation. The common bile duct measures 3 mm in caliber. No gallstones are identified. There is no gallbladder wall thickening. The gallbladder is normal. The pancreatic body is normal. The head and tail are slightly obscured. There is no right hydronephrosis. IMPRESSION: 1. Fatty infiltration of the liver. 2. No gallstones or biliary ductal dilatation. ACT 112: Negative or not required by law. Electronically signed by: Shad Austin M.D. 05/19/2020 7:10 AM
[2020-05-19 07:18] LABS: Albumin Level 3.1 gm/dl (3.4-5.0); BUN Creatinine Ratio 7.8 (10-20); Calcium 7.8 mg/dl (8.5-10.1); Creatinine Clr Calc Pharmacy 105.9 ml/min; Est GFR (African American) 114.7; Est GFR (Non-African American) 98.9; Potassium 3.5 mmol/L (3.5-5.1)
[2020-05-19 07:21] LABS: Albumin Globulin Ratio 0.9 (0.9-2); Bilirubin,Total 0.5 mg/dl (0.2-1); Globulin 3.6 gm/dl (2.5-4.0); Total Protein 6.7 gm/dl (6.4-8.2)
[2020-05-19] MEDS: BUSPIRONE HCL 7.5 MG TAB PO SCH ×2 (08:34→20:07)
[2020-05-19] MEDS: MULTIVITAMIN TAB PO SCH (08:34)
[2020-05-19] MEDS: FOLIC ACID 1 MG TAB PO SCH (08:34)
[2020-05-19] MEDS: THIAMINE HCL 100 MG TAB PO SCH (08:35)
[2020-05-19] MEDS: PANTOprazole 40 MG TAB PO SCH (08:35)
[2020-05-19] MEDS: ENOXAPARIN INJ 30 MG/0.3 ML SYR SQ SCH (08:37)
[2020-05-19] MEDS: cloNIDine HCL 0.1 MG TAB PO PRN ×2 (08:43→17:22)
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
--- NOTE | 2020-05-19 16:01 | Hospitalist Progress Note ---
Date of Service May 19, 2020 Assessment & Plan (1) Alcohol withdrawal: hx of chronic alcohol abuse on Alcohol withdrawal protocol per AWSS monitor in tele Alcoholic pancreatitis presented with abdominal pain elevated lipase level due to Alcoholic pancreatitis, bowel rest with clears Iv fluid monitor transaminitis due to alcoholic hepatitis IV fluid repeat labs pt is counselled for strict alcohol abstinence Hypertensive urgency secondary to illness ordered for PRN clonidine mood disorder, ADD as per records Suboptimal mood pysch eval appreciated pt needs to be off alcohol /sober for few months to evaluate primary psychiatric illness /anxiety disorder /panic attack congenital hypothyroidism, TSH elevated levothyroxine dose increased to 112 mcg repeat TSH level in 4-6 weeks DVT prophylaxis. Lovenox subcu Full code Admission and Anticipated Discharge Date Admission Date: May 18, 2020 Subjective pt reports of having panic attack /anxiety on and off no tremor no tachycardia , vitals stable Review of Systems Review of Systems: All systems reviewed & are unremarkable except as noted in HPI & below Physical Exam Constitutional: WD/WN, vitals as above Eyes: PERRL, conjunctivae normal, anicteric sclerae ENMT: external ear and nose normal, oropharynx normal Neck: trachea midline, no thyromegaly Respiratory: normal respiratory effort, lungs clear to auscultation Cardiovascular: RRR, no murmur, no edema Gastrointestinal (Abdomen): normal bowel sounds, soft, nontender, no hepatosplenomegaly Musculoskeletal: no cyanosis or clubbing, extremities motor strength 5/5 Neurologic: PERRL, EOMI, accommodation nl, no face palsy, no dysarthria Psychiatric: A+Ox3, euthymic affect Results & Data Results & Data ([facility]) Vital Signs (Past 12 Hours) Vital Signs Temp Pulse Pulse Resp BP BP Pulse Ox 05/19/20 15:09 37.2 C 104 H 16 149/107 H 97 05/19/20 12:37 37.1 C 90 16 138/94 96 05/19/20 11:35 37.1 C 90 18 149/105 H 96 05/19/20 09:40 37.2 C 101 H 18 145/106 H 96 05/19/20 08:00 90 05/19/20 07:12 36.8 C 95 H 16 157/112 H 95
[2020-05-19] MEDS: LOPERAMIDE HCL 2 MG CAP PO PRN (16:04)
[2020-05-19] MEDS: OXYCODONE HCL IR 5 MG TAB (IMMEDIATE RELEASE) PO PRN (16:04)
[2020-05-19] MEDS: LORazepam 1 MG/2 ML VIAL IV PRN ×2 (18:25→23:23)
[2020-05-19] MEDS: QUETIAPINE FUMARATE 25 MG TABLET PO SCH (20:06)
--- NOTE | 2020-05-19 22:36 | Electrocardiogram Report ---
Test Reason : Blood Pressure : / mmHG Vent. Rate : 116 BPM Atrial Rate : 116 BPM P-R Int : 178 ms QRS Dur : 078 ms QT Int : 314 ms P-R-T Axes : 054 067 -07 degrees QTc Int : 436 ms Sinus tachycardia Possible Left atrial enlargement Nonspecific T wave abnormality Abnormal ECG No previous ECGs available Confirmed by Norman Allen ([id number]) on 05/19/2020 10:36:27 PM Referred By: REFERRED SELF Confirmed By:Norman Allen
[2020-05-20] MEDS: GABAPENTIN 600 MG TAB PO SCH ×3 (02:05→20:54)
[2020-05-20] MEDS: LOPERAMIDE HCL 2 MG CAP PO PRN (05:24)
[2020-05-20] MEDS: LEVOTHYROXINE SODIUM 112 MCG TABLET PO SCH (05:24)
[2020-05-20] MEDS: OXYCODONE HCL IR 5 MG TAB (IMMEDIATE RELEASE) PO PRN ×4 (05:24→19:55)
[2020-05-20] MEDS: LACTATED RINGER'S 1,000 ML IV SCH ×3 (06:47→23:46)
[2020-05-20] MEDS: PANTOprazole 40 MG TAB PO SCH (08:00)
[2020-05-20] MEDS: FOLIC ACID 1 MG TAB PO SCH (08:00)
[2020-05-20] MEDS: MULTIVITAMIN TAB PO SCH (08:00)
[2020-05-20] MEDS: BUSPIRONE HCL 7.5 MG TAB PO SCH ×2 (08:00→20:54)
[2020-05-20] MEDS: THIAMINE HCL 100 MG TAB PO SCH (08:00)
[2020-05-20] MEDS: ENOXAPARIN INJ 30 MG/0.3 ML SYR SQ SCH (08:00)
[2020-05-20 09:05] LABS: Creatinine Clr Calc Pharmacy 114.2 ml/min; Est GFR (Non-African American) 108.7; Potassium 3.7 mmol/L (3.5-5.1)
[2020-05-20 09:07] LABS: Albumin Globulin Ratio 0.8 (0.9-2); Bilirubin,Total 0.9 mg/dl (0.2-1); Globulin 3.6 gm/dl (2.5-4.0); Total Protein 6.6 gm/dl (6.4-8.2)
[2020-05-20] MEDS: LORazepam 1 MG/2 ML VIAL IV PRN (13:00)
--- NOTE | 2020-05-20 14:42 | Hospitalist Progress Note ---
Date of Service May 20, 2020 Assessment & Plan (1) Alcohol withdrawal: hx of chronic alcohol abuse No sign or symptom of active alcohol withdrawal on Alcohol withdrawal protocol per AWSS monitor in tele Alcoholic pancreatitis presented with abdominal pain elevated lipase level due to Alcoholic pancreatitis, bowel rest with clears Iv fluid Lipase level is continued to worsen at 7024 today Increased IV fluids to 200 mL/h GI eval requested transaminitis due to alcoholic hepatitis IV fluid Follow CMP pt is counselled for strict alcohol abstinence mood disorder(anxiety disorder/panic attack), ADD as per records Suboptimal mood pysch eval appreciated pt needs to be off alcohol /sober for few months to evaluate primary psychiatric illness /anxiety disorder /panic attack congenital hypothyroidism, TSH elevated levothyroxine dose increased to 112 mcg repeat TSH level in 4-6 weeks DVT prophylaxis. SCD and teds, patient is encouraged to ambulate Full code Disposition: Expected to be discharged home when medically stable Admission and Anticipated Discharge Date Admission Date: May 18, 2020 Subjective Patient seen at bedside, Sitting up, reports tremor, anxiety has improved No complaint of abdominal pain, no nausea, requesting diet to be advanced Did not had any bowel movement today, feels her abdomen is distended No fever or chills No shortness of breath Review of Systems Review of Systems: As per HPI, all 10 systems reviewed, all other ROS negative Physical Exam Constitutional: WD/WN, vitals as above Eyes: PERRL, conjunctivae normal, anicteric sclerae ENMT: external ear and nose normal, oropharynx normal Neck: trachea midline, no thyromegaly Respiratory: normal respiratory effort, lungs clear to auscultation Cardiovascular: RRR, no murmur, no edema Gastrointestinal (Abdomen): normal bowel sounds, soft, nontender, no hepatosplenomegaly Musculoskeletal: no cyanosis or clubbing, extremities motor strength 5/5 Neurologic: PERRL, EOMI, accommodation nl, no face palsy, no dysarthria Psychiatric: A+Ox3, euthymic affect Results & Data Results & Data ([facility]) Vital Signs (Past 12 Hours) Vital Signs Temp Pulse Resp BP BP Pulse Ox 05/20/20 14:12 37.5 C 106 H 16 132/94 96 05/20/20 11:18 36.9 C 95 H 16 136/95 100 05/20/20 07:11 36.8 C 90 18 141/100 H 96 05/20/20 04:55 36.8 C 88 16 126/89 96
--- NOTE | 2020-05-20 15:37 | Communication Note ---
Date of Service: May 20, 2020 Received consult for pancreatitis. 29 y/o female admitted with alcohol withdrawal, h/o ETOH abuse, having abd pain, elevated lipase and transaminitis noted. Neg urine preg. Will check MRCP; will review tomorrow with full consult to follow. Keep NPO for bowel rest, agree with IVF.
[2020-05-20] MEDS ORDERED: MoRPHine SULFATE 2 MG/ML CARP IV PRN (17:46)
[2020-05-20] MEDS: LORazepam 2 MG/4 ML VIAL IV PRN (18:46)
--- NOTE | 2020-05-20 20:45 | Magnetic Resonance Report ---
MRCP CLINICAL HISTORY: Alcohol withdrawal. Generalized abdominal pain. Pancreatitis. COMPARISON STUDY: Abdominal ultrasound dated 05/18/2020. TECHNIQUE: Abdominal MRCP is performed utilizing various T2-weighted sequences in the axial and coron al planes. IV contrast was not administered for this examination. 3-D reformats are created and asses sed. FINDINGS: The gallbladder is normal in appearance. No gallstones are identified. There is no intra or extrahepa tic biliary ductal dilatation. The common bile duct measures up to 4 mm. There are no intraluminal fi lling defects to suggest choledocholithiasis. The pancreatic duct is normal in caliber. The liver is enlarged measuring 23.4 cm in length. There is a small volume of upper abdominal ascites . The pancreas appears enlarged and edematous. There is peripancreatic fluid consistent with reported history of acute pancreatitis. No organized peripancreatic fluid collection is identified. The unenh anced spleen, adrenal glands, and kidneys are grossly normal. The abdominal aorta is normal in calibe r. There is no bowel obstruction. No upper abdominal lymphadenopathy is identified. There are trace p leural effusions. The bony structures are normal as imaged. IMPRESSION: 1. Normal MRCP assessment of the gallbladder and biliary tree. 2. Findings are consistent with acute pancreatitis. 3. The liver is enlarged and steatotic. 4. Small volume abdominal ascites. 5. Trace pleural effusions. Electronically signed by: Paul Chavira M.D. 05/20/2020 8:43 PM
[2020-05-20] MEDS: QUETIAPINE FUMARATE 25 MG TABLET PO SCH (20:54)
[2020-05-21] MEDS: OXYCODONE HCL IR 5 MG TAB (IMMEDIATE RELEASE) PO PRN ×4 (00:57→23:01)
[2020-05-21] MEDS: LACTATED RINGER'S 1,000 ML IV SCH ×4 (04:26→20:17)
[2020-05-21] MEDS: LEVOTHYROXINE SODIUM 112 MCG TABLET PO SCH (05:42)
[2020-05-21] MEDS: LORazepam 1 MG/2 ML VIAL IV PRN ×2 (05:53→12:10)
[2020-05-21] MEDS: PROMETHAZINE HCL 12.5 MG in SODIUM CHLORIDE 0.9% 50 ML IV PRN ×2 (07:29→23:02)
[2020-05-21 08:57] LABS: Albumin Level 2.7 gm/dl (3.4-5.0); BUN Creatinine Ratio 3.2 (10-20); Calcium 7.9 mg/dl (8.5-10.1); Creatinine Clr Calc Pharmacy 133.2 ml/min; Est GFR (African American) 138.1; Est GFR (Non-African American) 119.1; Potassium 3.3 mmol/L (3.5-5.1)
[2020-05-21 09:00] LABS: Albumin Globulin Ratio 0.8 (0.9-2); Bilirubin,Total 0.8 mg/dl (0.2-1); Globulin 3.2 gm/dl (2.5-4.0); Total Protein 5.9 gm/dl (6.4-8.2)
[2020-05-21] MEDS: MULTIVITAMIN TAB PO SCH (09:22)
[2020-05-21] MEDS: THIAMINE HCL 100 MG TAB PO SCH (09:22)
[2020-05-21] MEDS: PANTOprazole 40 MG TAB PO SCH (09:22)
[2020-05-21] MEDS: BUSPIRONE HCL 7.5 MG TAB PO SCH ×2 (09:22→20:08)
[2020-05-21] MEDS: GABAPENTIN 600 MG TAB PO SCH (09:22)
[2020-05-21] MEDS: FOLIC ACID 1 MG TAB PO SCH (09:23)
[2020-05-21] MEDS ORDERED: POTASSIUM CHLORIDE 20 MEQ TABCR PO STA (10:47)
--- NOTE | 2020-05-21 12:29 | Hospitalist Progress Note ---
Date of Service May 21, 2020 Assessment & Plan (1) Alcohol withdrawal: hx of chronic alcohol abuse No sign or symptom of active alcohol withdrawal on Alcohol withdrawal protocol per AWSS monitor in tele Alcoholic pancreatitis presented with abdominal pain elevated lipase level due to Alcoholic pancreatitis, Treated with bowel rest with clears Iv fluid Lipase level mildly improved from 7074--2000 today Continue IV fluids to 200 mL/h GI eval appreciated, Gallbladder ultrasound, and MRCP of abdomen: Shows no gallbladder pathology, no dilated common bile duct, no evidence of stone in the biliary duct: Pancreatic inflammation Possible ongoing pancreatic inflammation due to alcohol abuse Bowel rest, Patient is advised repeatedly by GI team and myself for strict alcohol abstinence transaminitis due to alcoholic hepatitis AST ALT improved with IV hydration pt is counselled for strict alcohol abstinence mood disorder(anxiety disorder/panic attack), ADD as per records Suboptimal mood pysch eval appreciated pt needs to be off alcohol /sober for few months to evaluate primary psychiatric illness /anxiety disorder /panic attack congenital hypothyroidism, TSH elevated levothyroxine dose increased to 112 mcg repeat TSH level in 4-6 weeks DVT prophylaxis. SCD and teds, patient is encouraged to ambulate Full code Disposition: Expected to be discharged home when medically stable Admission and Anticipated Discharge Date Admission Date: May 18, 2020 Subjective Patient complains of constipation, causing her to feel bloated, no epigastric abdominal pain, no nausea, requesting diet to be advanced No fever or chills, no anxiety or tremor Sinus tachycardia noted on telemetry Review of Systems Review of Systems: All systems reviewed & are unremarkable except as noted in HPI & below Physical Exam Constitutional: WD/WN, vitals as above Eyes: PERRL, conjunctivae normal, anicteric sclerae ENMT: external ear and nose normal, oropharynx normal Neck: trachea midline, no thyromegaly Respiratory: normal respiratory effort, lungs clear to auscultation Cardiovascular: RRR, no murmur, no edema Gastrointestinal (Abdomen): normal bowel sounds, soft, nontender, no hepatosplenomegaly Musculoskeletal: no cyanosis or clubbing, extremities motor strength 5/5 Neurologic: PERRL, EOMI, accommodation nl, no face palsy, no dysarthria Psychiatric: A+Ox3, euthymic affect Results & Data Results & Data ([facility]) Vital Signs (Past 12 Hours) Vital Signs Temp Pulse Pulse Resp BP BP Pulse Ox 05/21/20 11:30 37.7 C H 102 H 18 147/107 H 96 05/21/20 07:42 105 H 05/21/20 07:34 37.4 C 105 H 16 135/95 92 05/21/20 04:32 37.5 C 104 H 18 134/92 95
[2020-05-21] MEDS ORDERED: METOPROLOL TARTRATE 1 MG/ML VIAL IV STA (12:41)
--- NOTE | 2020-05-21 13:36 | Gastrointestinal Consultation ---
Date of Consultation May 21, 2020 Assessment & Plan (1) Acute pancreatitis: This is a 29 y/o female with h/o mood disorder, ETOH use, admitted with lab/imaging findings c/w acute pancreatitis; had elevated lipase, AST/ALT which are trending down. MRCP and US ABD without evidence for biliary obstruction, stone. Abd pain improving; though she complains of constipation. She is going to be set-up with ETOH rehab/psychiatric care. She does remain tachycardic, with PE r/o (anxiety/withdrawal?). Abd is soft. Etiology of pancreatitis likely from ETOH. - Would advance to full liquids as tolerated - Low-fat diet when advanced to solids - Avoid ETOH - Rehab is a good idea given her recent heavy use - Would trend lipase, LFTs till resolution - Would start bowel regimen for constipation (daily Miralax/Benefiber); can use Miralax TID PRN; OOB as tolerated, avoid narcotics if possible Thank you for allowing us to participate in the care of this patient. Please call with any acute changes, questions or concerns. Please see addendum below with additional recommendation from my supervising physician. (2) Alcohol withdrawal: Supervising Physician Co-Signing Physician Notes I have seen and examined the patient and discussed the management with Africa Cavanaugh PA-C. 29 yo fm admitted through the ER with abdominal pain. Significant etoh history. Abd kendall/MRCP negative for biliary source. Abd - soft somewhat ttp all over Lipase elevated through downtrending Imaging reviewed Tachycardic today- suspect she is withdrawing. PE ruled out. Agree with further plan of care as per Africa's plan. Advance diet as tolerated, ok to dc home when pain, hemodynamics have improved, would encourage etoh rehab. History of Present Illness Reason for Consultation: pancreatitis Attending Physician: Nasima Cummins MD History of Present Illness This is a 29 y/o female with PMHx mood disorder, ETOH use, hypothyroid, and others who was admitted 05/18 after presenting with n/v, panic attacks, ETOH withdrawal. Pt had been experiencing abd pain, n/v x 1 month, had worsening moods, and was drinking heavily (3/4 of a 750 mL bottle daily). On arrival lipase elevated to 800, along with AST of 375, ALT 127, tbili and ALP WNL, no leukocytosis, anemia; mg low at 1.5. ETOH 170. Pt admitted and given IVF, Zofran, PRN Ativan, thiamine. US ABD unremarkable. MRCP with acute pancreatitis, no biliary/GB stone, dilation. She had a psych consult. Since admission, lipase bumped to 7,000 but today is 2000, transaminases bumped to AST 300's/ALT 100's, now trending down. Tbili WNL, no anemia, leukocytosis. She's remained tachycardic for most of her admission; CTA neg for PE on admission. She complains of some constipation after being given Imodium for diarrhea. Bowels move 3 x day, small loose; feels "full" of stool, feels like she has to go more. She's been on a clear liquid diet, wants to advance her diet more; feeling hungry. Denies abd pain, n/v, hematemesis, melena, hematochezia, dysphagia, heartburn, regurgitation, gas/bloat, jaundice, weight loss, fever, chest pain, dyspnea, dysuria, hematuria No fam hx GI malignancy She tells me she is going to proceed with outpt ETOH rehab/psychiatric care to address her ETOH use, anxiety. Allergies Allergy/AdvReac Type Severity Reaction Status Date / Time nickel AdvReac Redness of Verified 05/18/20 19:24 Skin Home Medications Home Medications Medication Instructions Recorded Confirmed Type levothyroxine 100 mcg PO QAM 08/12/19 05/18/20 History buspirone 7.5 mg PO BID 05/18/20 05/18/20 History lisdexamfetamine [Vyvanse] 40 mg PO QAM 05/18/20 05/18/20 History norethindrone-ethin estradiol 1 tab PO DAILY 05/18/20 05/18/20 History [Alyacen (28)] omeprazole 20 mg PO QAM 05/18/20 05/18/20 History quetiapine 25 mg PO HS 05/18/20 05/18/20 History Patient History Medical History ADHD (attention deficit hyperactivity disorder) Anemia Bipolar 1 disorder GERD (gastroesophageal reflux disease) HLD (hyperlipidemia) Hypoalbuminemia Hypothyroid Surgical History H/O arthroscopic knee surgery H/O wisdom tooth extraction Social History Preferred Language: [place] Communication Ability: Effective Beliefs That Will Affect Care: None marital status: Single Current Living Situation: Family Current Living Situation Comment: Lives w/ one year old son, mother assists in childcare Other Information That Helps Us Care for You: No Feels Safe at Home: Yes Safety Concerns: Feels Safe At This Time Smoking Status: Former smoker Do You Dip or Chew Tobacco: No ; Second Hand Exposure: No ; Tobacco Cessation Education Requested by Patient: No Hx Alcohol Use: Yes Alcohol type: hard liquor Hx Substance Use: No Review of Systems Review of Systems: All systems reviewed & are unremarkable except as noted in HPI & below Physical Exam Constitutional: WD/WN, vitals as above Eyes: + anicteric sclerae Respiratory: normal respiratory effort, lungs clear to auscultation Cardiovascular: RRR, no murmur, no edema Gastrointestinal (Abdomen): normal bowel sounds, soft, nontender, no hepatosplenomegaly Inspection/Auscultation: abdomen not distended Skin: no rashes, warm and dry Psychiatric: Orientation: alert and oriented x 3 Affect: + flat affect Results & Data (MN) Vital Signs (Past 12 Hours) Vital Signs Temp Pulse Pulse Resp BP BP BP 05/21/20 13:11 136 H 149/114 H 05/21/20 11:30 37.7 C H 102 H 18 147/107 H 05/21/20 07:42 105 H 05/21/20 07:34 37.4 C 105 H 16 135/95 05/21/20 04:32 37.5 C 104 H 18 134/92 Pulse Ox 05/21/20 13:11 05/21/20 11:30 96 05/21/20 07:42 05/21/20 07:34 92 05/21/20 04:32 95 Laboratory Results 05/21/20 Range/Units 08:05 Sodium 139 (136-145) mmol/L Potassium 3.3 L (3.5-5.1) mmol/L Chloride 105 (98-107) mmol/L Carbon Dioxide 27 (21-32) mmol/L Anion Gap 6.0 (3-11) BUN 2 L (7-18) mg/dl Creatinine 0.65 (0.6-1.2) mg/dl Est Cr Clr Drug Dosing 133.2 ml/min Est GFR ( Amer) 138.1 Est GFR (Non-Af Amer) 119.1 BUN/Creatinine Ratio 3.2 L (10-20) Glucose 88 (70-99) mg/dl Calcium 7.9 L (8.5-10.1) mg/dl Total Bilirubin 0.8 (0.2-1) mg/dl AST 81 H (15-37) U/L ALT 67 (12-78) U/L Alkaline Phosphatase 45 (45-117) U/L Total Protein 5.9 L (6.4-8.2) gm/dl Albumin 2.7 L (3.4-5.0) gm/dl Globulin 3.2 (2.5-4.0) gm/dl Albumin/Globulin Ratio 0.8 L (0.9-2) Lipase 2355 H (73-393) U/L Diagnostic Findings US gallbladder FINDINGS: Hepatic echogenicity is increased. No hepatic lesions are identified. There is no biliary ductal dilatation. The common bile duct measures 3 mm in caliber. No gallstones are identified. There is no gallbladder wall thickening. The gallbladder is normal. The pancreatic body is normal. The head and tail are slightly obscured. There is no right hydronephrosis. IMPRESSION: 1. Fatty infiltration of the liver. 2. No gallstones or biliary ductal dilatation. MRCP FINDINGS: The gallbladder is normal in appearance. No gallstones are identified. There is no intra or extrahepatic biliary ductal dilatation. The common bile duct measures up to 4 mm. There are no intraluminal filling defects to suggest choledocholithiasis. The pancreatic duct is normal in caliber. The liver is enlarged measuring 23.4 cm in length. There is a small volume of upper abdominal ascites. The pancreas appears enlarged and edematous. There is peripancreatic fluid consistent with reported history of acute pancreatitis. No organized peripancreatic fluid collection is identified. The unenhanced spleen, adrenal glands, and kidneys are grossly normal. The abdominal aorta is normal in caliber. There is no bowel obstruction. No upper abdominal lymphadenopathy is identified. There are trace pleural effusions. The bony structures are normal as imaged. IMPRESSION: 1. Normal MRCP assessment of the gallbladder and biliary tree. 2. Findings are consistent with acute pancreatitis. 3. The liver is enlarged and steatotic. 4. Small volume abdominal ascites. 5. Trace pleural effusions. (1) Acute pancreatitis Acute pancreatitis complication: unspecified Pancreatitis type: unspecified pancreatitis type Qualified Code(s): K85.90 - Acute pancreatitis without necrosis or infection, unspecified
[2020-05-21] MEDS ORDERED: METOPROLOL TARTRATE 1 MG/ML VIAL IV PRN (15:10)
[2020-05-21] MEDS ORDERED: POLYETHYLENE (MIRALAX) 17 GM PACK PO PRN (17:34)
[2020-05-21] MEDS: QUETIAPINE FUMARATE 25 MG TABLET PO SCH (20:08)
[2020-05-22] MEDS: LACTATED RINGER'S 1,000 ML IV SCH ×3 (01:45→12:52)
[2020-05-22] MEDS: OXYCODONE HCL IR 5 MG TAB (IMMEDIATE RELEASE) PO PRN ×2 (05:23→09:20)
[2020-05-22] MEDS: LEVOTHYROXINE SODIUM 112 MCG TABLET PO SCH (05:30)
[2020-05-22] MEDS: PROMETHAZINE HCL 12.5 MG in SODIUM CHLORIDE 0.9% 50 ML IV PRN (06:50)
[2020-05-22 07:16] LABS: Albumin Globulin Ratio 0.7 (0.9-2); Albumin Level 2.4 gm/dl (3.4-5.0); BUN Creatinine Ratio 4.8 (10-20); Bilirubin,Total 0.7 mg/dl (0.2-1); Calcium 8.3 mg/dl (8.5-10.1); Creatinine Clr Calc Pharmacy 133.9 ml/min; Est GFR (African American) 138.1; Est GFR (Non-African American) 119.1; Globulin 3.5 gm/dl (2.5-4.0); Total Protein 5.9 gm/dl (6.4-8.2)
[2020-05-22 07:17] LABS: Potassium 4.2 mmol/L (3.5-5.1)
--- NOTE | 2020-05-22 07:26 | Electrocardiogram Report ---
Test Reason : Blood Pressure : / mmHG Vent. Rate : 141 BPM Atrial Rate : 141 BPM P-R Int : 120 ms QRS Dur : 074 ms QT Int : 274 ms P-R-T Axes : 057 059 -15 degrees QTc Int : 419 ms Sinus tachycardia Nonspecific ST and T wave abnormality Abnormal ECG When compared with ECG of 18-MAY-2020 19:16, No significant change was found Confirmed by Norman Allen ([id number]) on 05/22/2020 7:25:58 AM Referred By: REFERRED SELF Confirmed By:Norman Allen
[2020-05-22] MEDS: MULTIVITAMIN TAB PO SCH (07:41)
[2020-05-22] MEDS: PANTOprazole 40 MG TAB PO SCH (07:41)
[2020-05-22] MEDS: BUSPIRONE HCL 7.5 MG TAB PO SCH (07:42)
[2020-05-22] MEDS: THIAMINE HCL 100 MG TAB PO SCH (07:42)
[2020-05-22] MEDS: FOLIC ACID 1 MG TAB PO SCH (07:42)
[2020-05-22] MEDS ORDERED: LISDEXAMFETAMINE DIMESYLATE 40 MG PO SCH (09:00)
[2020-05-22] MEDS ORDERED: VYVANSE PO SCH (09:00)
[2020-05-22] MEDS ORDERED: GABAPENTIN 600 MG TAB PO SCH (10:00)
--- NOTE | 2020-05-22 17:48 | Discharge Summary ---
Date of Service May 22, 2020 Admission HPI Per Admitting Provider History obtained from patient, family, and records. Medical history significant for mood disorder, ADD as per records, congenital hypothyroidism, alcohol abuse. Last 2018 for childbirth/vaginal delivery under OB service. Patient stressed out the last month with work at home. More anxious than usual. Mood not the best denies suicidality. Admits to alcohol abuse. This morning, patient consume less alcohol than usual due to desire to quit. Subsequently had nausea, emesis symptoms, shortness of breath. Body shaking all over. Patient denies chest pain, cough, recent COVID-19 contacts. No actual abdominal pain. Usual watery diarrhea symptoms. No prior history of alcohol withdrawal seizures/intubation for alcohol withdrawal. Patient brought to the ER for evaluation by mother. Medical History as above Recent outpatient GI work-up last March 2020 for diarrhea symptoms. Stool C. difficile negative. EGD reflux esophagitis, gastritis. Colonoscopy showed diverticulosis, internal hemorrhoids. Surgical History : Dental surgery Family History : Depression, alcoholism Personal/Social history : Non-smoker, alcohol abuse, computer coding work Principal Diagnosis Alcoholic pancreatitis Chronic alcohol abuse Anxiety disorder Discharge Exam Constitutional WD/WN, vitals as above Eyes PERRL, conjunctivae normal, anicteric sclerae ENMT external ear and nose normal, oropharynx normal Neck trachea midline, no thyromegaly Respiratory normal respiratory effort, lungs clear to auscultation Cardiovascular RRR, no murmur, no edema Gastrointestinal (Abdomen) normal bowel sounds, soft, nontender, no hepatosplenomegaly Musculoskeletal no cyanosis or clubbing, extremities motor strength 5/5 Neurologic PERRL, EOMI, accommodation nl, no face palsy, no dysarthria Psychiatric A+Ox3, euthymic affect Discharge Data Allergies Allergy/AdvReac Type Severity Reaction Status Date / Time nickel AdvReac Redness of Verified 05/18/20 19:24 Skin Consultations 05/18/20 21:07 ED Decision to Admit Stat 05/18/20 22:55 Consult Case Management - Discharge Planning Routine Consult Psychiatry Routine 05/20/20 14:58 Consult Gastroenterology Routine Ordered Studies 05/18/20 19:53 CT angio chest PE protocol Stat 05/18/20 21:05 US gallbladder Urgent 05/20/20 15:33 MR MRCP Routine Hospital Course (1) Alcohol withdrawal: hx of chronic alcohol abuse No sign or symptom of active alcohol withdrawal No alcohol withdrawal protocol per [facility] Alcoholic pancreatitis presented with abdominal pain/ elevated lipase level due to Alcoholic pancreatitis, Treated with bowel rest with clears Lipase level improved from 7074--2000 -800 Diet advanced to low-fat diet, tolerating well, Abdominal pain, no nausea vomiting patient is very eager to be discharged GI eval appreciated, Gallbladder ultrasound, and MRCP of abdomen: Shows no gallbladder pathology, no dilated common bile duct, no evidence of stone in the biliary duct: Pancreatic inflammation Patient is advised repeatedly by GI team and myself for strict alcohol abstinence transaminitis due to alcoholic hepatitis AST ALT normalized after IV hydration pt is counselled for strict alcohol abstinence mood disorder(anxiety disorder/panic attack), ADD as per records Suboptimal mood pysch eval appreciated pt needs to be off alcohol /sober for few months to evaluate primary psychiatric illness /anxiety disorder /panic attack congenital hypothyroidism, TSH elevated levothyroxine dose increased to 112 mcg repeat TSH level in 4-6 weeks DVT prophylaxis. SCD and teds, patient is encouraged to ambulate Full code Disposition: To be discharged home today, outpatient follow-up with family physician and repeat lab work lipase level in 1 week Total Time Total Time Spent Total Time Spent (In Minutes): 35 MINS Total Time Includes: Examination of the Patient, Discharge Planning and Medication Reconciliation Discharge Plan Discharge Items Patient Disposition: Home - Self-Care Reason For Visit: ETH WITHDRAWAL Discharge Diagnosis: Alcoholic pancreatitis Chronic alcohol abuse Anxiety disorder Activity: Resume your previous activity Non-emergency contact: Primary Care Provider Call non-emergency contact if: you have any medication questions Follow-up/Referrals: Belen Tran DO [Primary Care Provider] - (Hospital follow-up with family physician in 1 week/office will call with appointment) Diet: Low Fat Ambulatory Orders: Comprehensive Metabolic Panel (Routine) Timeframe: 1 Week Location: Determined by Patient Ordered By: Nasima Cummins Lipase (Routine) Timeframe: 1 Week Location: Determined by Patient Ordered By: Nasima Cummins Addtl Attending Provider Instructions: Continue low-fat diet for the next 4 weeks It is very important for you absolute abstinence from alcohol-you are developing liver disease and pancreas disease-due to alcohol Repeat lab work: Lipase level in a week with next clinic visit Can take Motrin/ibuprofen 1 tablet by mouth every 8 hours as needed, please take with food Drink plenty of fluids to keep yourself hydrated Pending Studies at Discharge: Yes Studies:: Lab: Apprehensive metabolic panel, lipase level in 1 week Stand-Alone Forms: My [facility], Smoking Cessation, Suicide Prevention Resources Medications and DC Order Prescriptions: New ondansetron HCl [Zofran] 4 mg tablet 4 mg PO Q6H PRN (Reason: nausea and vomiting) Qty: 90 RF: 3 ibuprofen [Motrin IB] 200 mg tablet 200 mg PO Q8H Qty: 90 RF: 0 Continued levothyroxine 100 mcg tablet 100 mcg PO QAM RF: 0 quetiapine 25 mg tablet 25 mg PO HS RF: 0 buspirone 7.5 mg tablet 7.5 mg PO BID RF: 0 omeprazole 20 mg capsule,delayed release(DR/EC) 20 mg PO QAM RF: 0 Alyacen 1/35 (28) 1-35 mg-mcg tablet 1 tab PO DAILY RF: 0 Vyvanse 40 mg capsule 40 mg PO QAM RF: 0 Discharge Orders: Discharge Order (Routine); Ordered 05/22/20 Ordered By: Nasima Valles/Other Patient Handouts: Alcoholism How to be Part of the Solution, Alcoholism Resources, Alcoholism: Getting Help, Alcohol Addiction, Alcohol Withdrawal: What to Expect, Addiction: Getting Help, Adding Flavor to Low-Fat Meals, ED Diet, Low Fat Admission Data Admit Date/Time: 05/18/20 21:40 Attending Provider: Nasima Cummins Admit Provider: Ricki Saldaña Primary Care Provider: Belen Tran Other Providers: Ricki Saldaña ; Zhang Britton ; Gail Ortega Arthur J. ; Elvin Ray ; Mikal Sánchez ; Blanca Metcalf ; Emil García ; Ronit Galindo ; Shivani Mayorga ; Sasha Fregoso ; Sharmaine Gill ; Milton Ballesteros I. ; Aydee Rocha ; Lisa Ellis ; Cassia Zamora ; Adam Schwartz SPadmini ; Henry Anguiano ; Africa Cavanaugh ; Anil Suarez ; Sarahi Delacruz ; Brant Villegas ; Jan Lara ; Chantal Coleman ; Thao Gonzáles ; Sameer Ward ; Alfred Gomez ; Deborah Callahan ; Breana Asencio ; Brianna Samuels ; Kami Mack ; Randy Vides Other Interventions: Discharge Summary Assessment (RN) Last Done: 05/22/20 13:22 PSY Interdisciplinary Discharge Planning Last Done: 05/21/20 11:09 DC Date/Time DO NOT enter until pt leaves facility: 05/22/20 14:23
== END 2020-05-22 14:23 | disposition home or self-care (01) | DRG 440 ==
LOC: ED 18:43 → 2W 21:40